=== PATIENT | male | born 1975 | race Caucasian/White ===

== ENCOUNTER 2019-02-22 10:12 | Emergency (ER) | payer BC ==
[2019-02-22 10:20] VITALS: BP 156/61; PULSE 72; RESP 16; TEMP 98.7
[2019-02-22] MEDS ORDERED: KETOROLAC 30 MG/ML 1 ML VIAL IM STA (10:44)
--- NOTE | 2019-02-22 11:32 | XR ---
EXAMINATION TYPE: XR tibia fibula 2 views RT, XR ankle complete 3 views RT, XR foot complete 3 views RT DATE OF EXAM: 02/22/2019 COMPARISON: NONE HISTORY: 43 year-old male lower leg pain, twisting injury. FINDINGS: Tibia/fibula: No acute fracture of the more proximal to mid tibia or fibula. Right ankle: Anterior soft tissue swelling. Punctate density anterior margin of the distal tibia on the lateral vi ew. Vascular calcifications suggest underlying diabetes under chronic kidney disease. Achilles tendon is normally delineated. The subtalar joint is aligned. Right foot: Guerrero's toe. Mild degenerative spurring at the first MTP joint. No acute fracture, subluxation, or d islocation. IMPRESSION: 1. Tibia/fibula: No acute osseous anomaly seen. 2. Right ankle: Punctate density anterior margin of the distal tibia on the lateral view. Anterior so ft tissue swelling also noted. A tiny loose body or punctate avulsion density relating to ligamentous injury not excluded. Otherwise, no acute osseous anomaly seen. 3. Right foot: No acute osseous abnormality seen.
[2019-02-22] MEDS ORDERED: ACET/COD 300 MG/30 MG STARTER PACK 6 TAB BTL PO STA (12:38)
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
== END 2019-02-22 12:48 | disposition home or self-care (01) ==
LOC: EC 10:12
DX: M25.571 Pain in right ankle and joints of right foot (principal); M25.471 Effusion, right ankle; Z98.890 Other specified postprocedural states; W01.0XXA Fall on same level from slipping, tripping and stumbling without subsequent striking against object, initial encounter; X50.1XXA Overexertion from prolonged static or awkward postures, initial encounter; Y92.89 Other specified places as the place of occurrence of the external cause; Y93.16 Activity, rowing, canoeing, kayaking, rafting and tubing
CPT/HCPCS: 99283; 29515; 96372; 73590; 73610; 73630; J1885